=== PATIENT | male | born 1935 | race Caucasian/White ===

== ENCOUNTER 2024-06-01 14:19 | Emergency (ER) | payer OTHER, MEDICARE ==
--- NOTE | 2024-06-01 17:01 | RAD REPORT ---
EXAMINATION: ONE VIEW CHEST XR CLINICAL INDICATION: Male, 89 years old.,weakness TECHNIQUE: Frontal chest projection is submitted. Examination is limited by patient positioning and t echnique. COMPARISON: 12/03/2014 FINDINGS: The lungs are well inflated and clear. Mild hyperlucency, suggesting COPD. No pneumothorax or sizable effusion. The heart is normal in size. IMPRESSION: No acute intrathoracic abnormalities.
[2024-06-01 18:38] LABS: Absolute Lymphocytes (CBC) 2.3 K/uL (0.7-4.9); Absolute Monocytes 0.5 K/uL (0.1-1.3); Absolute Neutrophil 3.6 K/uL (1.8-8.0); Basophils % 0.4 % (0-1.3); Eosinophils % 0.8 % (0-4.4); Hematocrit 29.1 % (39.6-49.0); Hemoglobin 9.6 g/dL (13.6-17.9); Lymphocytes % 35.6 % (15.3-44.8); MCH 28.7 pg (27.0-35.0); MCHC 32.9 g/dL (32.0-36.0); MCV 87.2 fL (80-100); MPV 7.8 fL (7.6-11.3); Monocytes % 7.5 % (3.3-12.3); Neutrophils % 55.7 % (41.7-73.7); Platelets 283 thou/uL (152-406); RBC Red Blood Cell Count 3.34 M/uL (4.33-5.43); Red Cell Distribution Width 14.9 % (12.1-15.2)
[2024-06-01 18:42] LABS: PT Prothrombin Time 14.6 SECONDS (9.4-12.5); Protime INR 1.31
[2024-06-01 18:48] LABS: ALT/SGPT 16 U/L (16-61); AST/SGOT 14 U/L (15-37); Albumin 3.7 g/dL (3.4-5.0); Albumin/Globulin Ratio 1.2 (1.1-1.8); Alkaline Phosphatase 108 U/L (45-117); BUN Blood Urea Nitrogen 28 mg/dL (7-18); Bicarbonate 26 mEq/L (21-32); Bilirubin Total 0.3 mg/dL (0.2-1.0); Globulin 3.2 g/dL (2.3-3.5); Glomerular Filtration Rate 48 ml/min (=/>90); Glucose Level 162 mg/dL (74-106); Magnesium 2.2 mg/dL (1.6-2.4); Protein, Total 6.9 g/dL (6.4-8.2); Sodium Level 140 mEq/L (136-145); Troponin High Sensitivity 5.6 pg/mL (<58.9)
[2024-06-01 18:49] LABS: Bilirubin Direct < 0.2 mg/dL (0-0.2); Bilirubin Indirect, Calculated 0.1 mg/dL (0.2-0.8)
[2024-06-01] MEDS ORDERED: NA CHLORIDE 0.9% 250 ML ONE (19:54)
[2024-06-01] MEDS ORDERED: PANTOPRAZOLE 40 MG INJ ONE (19:54)
--- NOTE | 2024-06-01 21:42 | RAD REPORT ---
EXAMINATION: Abdomen Pelvis W/Wo Contrast CLINICAL INDICATION: Male, 89 years old. [facility] MAIN dark stools Bed Name: [id number] TECHNIQUE: CT abdomen and pelvis was performed, before and after the administration of IV contrast, a s per department protocol. Axial, sagittal and coronal reconstructions were obtained. One or more of the following dose reduction techniques were used: Automated exposure control, adjustment of the m A and/or kV according to patient size, and/or iterative reconstruction. Unless otherwise specified, incidental findings do not require dedicated imaging follow-up. COMPARISON: No prior exam. FINDINGS: LOWER CHEST: The visualized lung bases are clear. LIVER: Normal in size and contour. No focal lesion. BILIARY SYSTEM: Cholelithiasis. No pericholecystic fluid or fat stranding. PANCREAS: No mass, ductal dilation, or pratik-pancreatic fluid. SPLEEN: Normal size. No focal lesion. ADRENALS: Normal; no mass. KIDNEYS AND URETERS: Normal size and contour. No hydronephrosis or hydroureter. No enhancing mass or filling defect within the renal pelvises. No suspicious filling defects within the ureters. URINARY BLADDER: Normal in appearance. No suspicious mass or stone. GASTROINTESTINAL TRACT: No evidence of bowel obstruction, free air, significant free fluid or abscess . Sigmoid diverticulosis without evidence of acute diverticulitis APPENDIX: No inflammatory changes in region of appendix. LYMPH NODES: No lymphadenopathy. REPRODUCTIVE ORGANS: No pathologic process. MUSCULOSKELETAL: No acute or suspicious osseous abnormality. 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 ADDITIONAL FINDINGS: Right inguinal hernia containing fat. IMPRESSION: Sigmoid diverticulosis without evidence of acute diverticulitis. Gallstones. Other findings as above.
--- NOTE | 2024-06-01 22:27 | ER ---
Nurse's Notes [facility] Name: Mode Schwartz Age: 89 yrs Sex: Male : 1935 Arrival Date: 06/01/2024 Time: 14:19 Bed 3 Private MD: Diagnosis: Anemia, unspecified;GI Bleed/ Gastrointestinal hemorrhage, unspecified Presentation: 06/01 14:33 Chief complaint: Patient states: DIARRHEA, BLACK STOOLS X 2 DAYS. LOWER BACK PAIN AND db COMPLAINING OF WEAKNESS. AMBULATORY WITH ROLLING WALKER IN TRIAGE. Coronavirus screen: Client denies travel out of the [place] in the last 14 days. Coronavirus screen: At this time, the client does not indicate any symptoms associated with coronavirus-19. Ebola Screen: Patient negative for fever greater than or equal to 101.5 degrees Fahrenheit, and additional compatible Ebola Virus Disease symptoms Patient denies exposure to infectious person. Patient denies travel to an Ebola-affected area in the 21 days before illness onset. No symptoms or risks identified at this time. Initial Sepsis Screen: Does the patient meet any 2 criteria? No. Patient's initial sepsis screen is negative. Does the patient have a suspected source of infection? No. Patient's initial sepsis screen is negative. Risk Assessment: Do you want to hurt yourself or someone else? Patient reports no desire to harm self or others. Onset of symptoms was June 01, 2024. 14:33 Method Of Arrival: Ambulatory db 14:33 Acuity: KIANA 3 db Triage Assessment: 14:35 General: Appears in no apparent distress. comfortable, Behavior is calm, cooperative. db Pain: Complains of pain in back. Neuro: Level of Consciousness is awake, alert, obeys commands, Oriented to person, place, time, situation. Respiratory: Airway is patent Respiratory effort is even, unlabored, Respiratory pattern is regular, symmetrical. GI: Abdomen is non-distended, Stools are reported to be diarrhea. Historical: - Allergies: 14:35 No Known Allergies; db - Home Meds: 14:35 Eliquis oral [Active]; db - PMHx: 14:35 BLOOD CLOTS; Hypertensive disorder; db - PSHx: 14:35 CARDIAC STENT; Stented artery; db - Immunization history:: Adult Immunizations unknown. - Infectious Disease History:: Denies. - Social history:: Smoking status: Patient denies any tobacco usage or history of. Screenin:09 [facility] ED Fall Risk Assessment (Adult) History of falling in the last 3 months, dd2 including since admission No falls in past 3 months (0 pts) Confusion or Disorientation Yes (5 pts) Intoxicated or Sedated No (0 pts) Impaired Gait No (0 pts) Mobility Assist Device Used Yes (1 pt) Altered Elimination No (0 pt) Score/Fall Risk Level 3 or more points = High Risk Oriented to surroundings, Maintained a safe environment, Educated pt \T\ family on fall prevention, incl call for assistance when getting out of bed, Assessed \T\ reinforced patient's understanding of fall precautions, Used ambulatory aids as needed (educated on \T\ assisted with), Remained with patient while ambulating, Utilized family, sitter, or virtual source water protection specialist as indicated. Abuse screen: Denies threats or abuse. Nutritional screening: No deficits noted. Tuberculosis screening: No symptoms or risk factors identified. Assessment: 14:35 General: Appears in no apparent distress. comfortable, Behavior is calm, cooperative. rs5 Pain: Complains of pain in back Pain currently is 2 out of 10 on a pain scale. Quality of pain is described as aching, Is continuous. Neuro: Level of Consciousness is awake, alert, obeys commands, Oriented to person, place, time, situation. Cardiovascular: Patient's skin is warm and dry. Respiratory: Airway is patent Respiratory effort is even, unlabored, Respiratory pattern is regular, symmetrical. 14:35 GI: Abdomen is round non-distended, Abd is soft and non tender X 4 quads. GI: Reports rs5 diarrhea, dark tarry stool. : No signs and/or symptoms were reported regarding the genitourinary system. EENT: No signs and/or symptoms were reported regarding the EENT system. Derm: Skin is intact, Skin is pink, warm \T\ dry. Musculoskeletal: Range of motion: intact in all extremities. 15:40 Reassessment: Patient and/or family updated on plan of care and expected duration. Pain rs5 level reassessed. Patient is alert, oriented x 3, equal unlabored respirations, skin warm/dry/pink. 17:01 Reassessment: Patient and/or family updated on plan of care and expected duration. Pain rs5 level reassessed. Patient is alert, oriented x 3, equal unlabored respirations, skin warm/dry/pink. 18:10 Reassessment: Patient and/or family updated on plan of care and expected duration. Pain rs5 level reassessed. Patient is alert, oriented x 3, equal unlabored respirations, skin warm/dry/pink. 20:09 Reassessment: Patient is alert, oriented x 3, equal unlabored respirations, skin dd2 warm/dry/pink. Pt AAOX3 WITH FORGETFULNESS. 20G RAC, PATENT FLUSHES WELL. VSS. RESPIRATIONS EVEN AND UNLABORED. STOMACH NON-TENDER, NON-DISTENDED. MOVES ALL EXTREMITIES. DENIES SOB, CHEST PAIN OR PAIN Patient denies pain at this time. 20:15 Reassessment: Patient appears in no apparent distress at this time. No changes from vc1 previously documented assessment. Patient and/or family updated on plan of care and expected duration. Pain level reassessed. Patient is alert, oriented x 3, equal unlabored respirations, skin warm/dry/pink. 22:00 Reassessment: Patient appears in no apparent distress at this time. No changes from vc1 previously documented assessment. Patient and/or family updated on plan of care and expected duration. Pain level reassessed. Patient is alert, oriented x 3, equal unlabored respirations, skin warm/dry/pink. 23:00 General: pt discharge pending; waiting on radiology disk. vc1 Vital Signs: 14:33 BP 135 / 108; Pulse 78; Resp 18; Temp 98.7; Pulse Ox 98% ; Weight 83.01 kg; Height 5 db ft. 10 in. ; 20:09 BP 152 / 63; Pulse 71; Resp 17; Pulse Ox 99% ; dd2 23:19 BP 148 / 67; Pulse 76; Resp 17; Pulse Ox 98% ; Pain 0/10; dd2 14:33 Body Mass Index 26.26 (83.01 kg, 177.8 cm) db 23:19 Pain Scale: Adult dd2 ED Course: 14:25 Patient arrived in ED. sj2 14:26 Moise Quintero PA is PHCP. cp 14:26 Moise Shaw MD is Attending Physician. cp 14:35 Triage completed. db 14:35 Arm band placed on left wrist. Patient placed in waiting room. db 15:32 XRAY Chest (1 view) In Process Unspecified. EDMS 17:45 Radiology exam delayed due to IV insertion attempt and/or patient not having sj appropriate IV at this time. 17:46 Radiology exam delayed due to lab results not completed at this time. (BUN/Creatinine). sj 18:23 Sylvester Lino, RN is Primary Nurse. rs5 18:41 Radiology exam delayed due to lab results not completed at this time. (BUN/Creatinine). 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 EKG done, by ED staff, reviewed by Moise Quintero dd2 PA. 20:08 IV is patent, is intact, with fluids infusing freely, with good blood return, 20g RAC dd2 placed by day shift. 20:09 Patient has correct armband on for positive identification. Placed in gown. Bed in low dd2 position. Call light in reach. Side rails up X2. Provided Education on: call light, medications, transfer information. Client placed on continuous cardiac and pulse oximetry monitoring. NIBP monitoring applied. site monitor on. Door closed. Noise minimized. Warm blanket given. Pillow given. Verbal reassurance given. 20:09 Patient maintains SpO2 saturation greater than 95% on room air. dd2 20:56 CT Abd/Pelvis- W/WO Contrast In Process Unspecified. EDMS 22:26 Jaswant Caraballo MD is Referral Physician. cp 23:39 IV discontinued, intact, bleeding controlled, No redness/swelling at site. Pressure vc1 dressing applied. Administered Medications: 20:07 Drug: Pantoprazole IVP 40 mg IVP once Route: IVP; Site: right antecubital; dd2 20:21 Follow up: Response: No adverse reaction dd2 20:07 Drug: Pantoprazole IVP 40 mg IVP once Route: IVP; Site: right antecubital; dd2 20:21 Follow up: Response: No adverse reaction dd2 20:07 Drug: Pantoprazole IV 8 mg/hr IV at 25 ml/hr continuous; (Standard dilution is 80 mg in dd2 250 mL NS) Route: IV; Rate: 25 ml/hr; Site: right antecubital; 20:21 Follow up: Response: No adverse reaction dd2 23:39 Follow up: IV Status: Order to discontinue infusion; IV Intake: 75ml vc1 Medication: 20:09 VIS not applicable for this client. dd2 Intake: 23:39 IV: 75ml; Total: 75ml. vc1 Outcome: 22:26 Discharge ordered by MD. cp 23:38 Discharged to home ambulatory, with significant other, vc1 23:38 Condition: improved 23:38 Discharge instructions given to patient, Instructed on discharge instructions, follow up and referral plans. Demonstrated understanding of instructions, follow-up care, 23:39 Patient left the ED. vc1 Signatures: Dispatcher [employer] EDConcetta Lane Corey, PA PA Adriano Ratliff Vanessa, RN RN vc1 Mary Blanco RN RN db Sylvester Lino RN RN rs5 ROXANN WHEATLEY RN RN dd2 Mari [facility]
--- NOTE | 2024-06-01 22:27 | EDPHYS ---
Physician Documentation [facility] Name: Mode Schwartz Age: 89 yrs Sex: Male : 1935 Arrival Date: 06/01/2024 Time: 14:19 Bed 3 Private MD: ED Physician Moise Shaw HPI: 06/01 14:45 This 89 yrs old Unknown Male presents to ER via Ambulatory with complaints of Bloody cp Stools, Low Back Pain. 14:45 The patient presents to the emergency department with rectal bleeding, dark red blood cp with bowel movement with multiple such episodes. Onset: The symptoms/episode began/occurred 2 day(s) ago. Abdominal pain: located in the abdomen diffusely. Associated signs and symptoms: Pertinent positives: low back pain, Pertinent negatives: chest pain, constipation, fever, shortness of breath, syncope. 14:45 Severity of symptoms: in the emergency department the symptoms are unchanged despite cp home interventions. Historical: - Allergies: 14:35 No Known Allergies; db - Home Meds: 14:35 Eliquis oral [Active]; db - PMHx: 14:35 BLOOD CLOTS; Hypertensive disorder; db - PSHx: 14:35 CARDIAC STENT; Stented artery; db - Immunization history:: Adult Immunizations unknown. - Infectious Disease History:: Denies. - Social history:: Smoking status: Patient denies any tobacco usage or history of. ROS: 14:50 Constitutional: Negative for body aches, chills, fever, poor PO intake, cp 14:50 Eyes: Negative for injury, pain, redness, and discharge, cp 14:50 ENT: Negative for drainage from ear(s), ear pain, sore throat, difficulty swallowing, difficulty handling secretions, 14:50 Cardiovascular: Negative for chest pain, edema, palpitations, 14:50 Respiratory: Negative for cough, shortness of breath, wheezing, 14:50 Abdomen/GI: Positive for abdominal pain, diarrhea, black/tarry stool, Negative for vomiting, constipation, 14:50 Neuro: Negative for altered mental status, dizziness, headache, syncope, weakness, 14:50 All other systems are negative, Exam: 14:55 Constitutional: The patient appears in no acute distress, alert, awake, cp non-diaphoretic, non-toxic, well developed, well nourished, 14:55 Head/Face: Normocephalic, atraumatic. cp 14:55 Eyes: Periorbital structures: appear normal, Conjunctiva: normal, no exudate, no injection, Sclera: no appreciated abnormality, Lids and lashes: appear normal, bilaterally, 14:55 ENT: External ear(s): are unremarkable, Nose: is normal, Mouth: Lips: moist, Oral mucosa: pink and intact, moist, Posterior pharynx: Airway: no evidence of obstruction, patent, 14:55 Neck: ROM/movement: is normal, is supple, without pain, no range of motions limitations, 14:55 Chest/axilla: Inspection: normal, 14:55 Cardiovascular: Rate: normal, Rhythm: regular, Edema: is not appreciated, JVD: is not appreciated, 14:55 Respiratory: the patient does not display signs of respiratory distress, Respirations: normal, no use of accessory muscles, no retractions, labored breathing, is not present, Breath sounds: are clear throughout, no decreased breath sounds, no stridor, no wheezing, 14:55 Abdomen/GI: Inspection: abdomen appears normal, Palpation: soft, in all quadrants, mild abdominal tenderness, in all quadrants, 14:55 Back: ROM is normal, CVA tenderness, is absent, 14:55 Neuro: Orientation: no acute changes, per family, Mentation: no acute changes, per family, Motor: moves all fours, no focal deficits, Gait: is steady, 19:30 ECG was reviewed by the Attending Physician. Vital Signs: 14:33 BP 135 / 108; Pulse 78; Resp 18; Temp 98.7; Pulse Ox 98% ; Weight 83.01 kg; Height 5 db ft. 10 in. ; 20:09 BP 152 / 63; Pulse 71; Resp 17; Pulse Ox 99% ; dd2 23:19 BP 148 / 67; Pulse 76; Resp 17; Pulse Ox 98% ; Pain 0/10; dd2 14:33 Body Mass Index 26.26 (83.01 kg, 177.8 cm) db 23:19 Pain Scale: Adult dd2 MDM: 14:35 Medical Screening Exam initiated cp 22:25 Data reviewed: vital signs, nurses notes, lab test result(s), EKG, radiologic studies, cp CT scan, plain films. 22:25 I considered the following discharge prescriptions or medication management in the cp emergency department Medications were administered in the Emergency Department. See MAR. Care significantly affected by the following chronic conditions: Hypertension, takes Eliquis. ED course: VSS. Discussed results of today's testing and concern for upper GI bleed, need for transfer for GI services. Patient and refuse transfer at this time and can return to ED any time for reevaluation. 06/01 14:40 Order name: Basic Metabolic Panel; Complete Time: 19:06 06/01 19:07 Interpretation: Normal except: CL 108; GLUC 162; BUN 28; CRE 1.42; GFR 48. 06/01 14:40 Order name: CBC with Diff; Complete Time: 19:06 06/01 19:14 Interpretation: Normal except: RBC 3.34; HGB 9.6; HCT 29.1. 06/01 14:40 Order name: LFT's; Complete Time: 19:06 06/01 14:40 Order name: Magnesium; Complete Time: 19:06 06/01 14:40 Order name: PT-INR; Complete Time: 19:06 06/01 14:40 Order name: Troponin HS; Complete Time: 19:06 06/01 14:40 Order name: Ptt, Activated; Complete Time: 19:06 06/01 14:40 Order name: XRAY Chest (1 view); Complete Time: 19:06 06/01 17:42 Order name: CT Abd/Pelvis- W/WO Contrast; Complete Time: 21:59 06/01 14:40 Order name: Cardiac monitoring; Complete Time: 19:15 06/01 14:40 Order name: EKG - Nurse/Tech; Complete Time: 19:29 06/01 14:40 Order name: IV Saline Lock; Complete Time: 20:18 cp 06/01 14:40 Order name: Labs collected and sent; Complete Time: 20:18 06/01 14:40 Order name: O2 Per Protocol; Complete Time: 19:15 06/01 14:40 Order name: O2 Sat Monitoring; Complete Time: 19:15 cp EC:30 Rate is 74 beats/min. Rhythm is regular. UT interval is normal. QRS interval is cp prolonged at 132 msec. QT interval is normal. T waves are Inverted in lead aVR. Interpreted by me. Reviewed by me. Administered Medications: 20:07 Drug: Pantoprazole IVP 40 mg IVP once Route: IVP; Site: right antecubital; dd2 20:21 Follow up: Response: No adverse reaction dd2 20:07 Drug: Pantoprazole IVP 40 mg IVP once Route: IVP; Site: right antecubital; dd2 20:21 Follow up: Response: No adverse reaction dd2 20:07 Drug: Pantoprazole IV 8 mg/hr IV at 25 ml/hr continuous; (Standard dilution is 80 mg in dd2 250 mL NS) Route: IV; Rate: 25 ml/hr; Site: right antecubital; 20:21 Follow up: Response: No adverse reaction dd2 23:39 Follow up: IV Status: Order to discontinue infusion; IV Intake: 75ml vc1 Disposition Summary: 06/01/24 22:26 Discharge Ordered Notes: Location: Home cp Problem: new cp Symptoms: are unchanged cp Condition: Stable cp Diagnosis - Anemia, unspecified cp - GI Bleed/ Gastrointestinal hemorrhage, unspecified cp Followup: cp - With: Jaswant Caraballo MD - When: 1 - 2 days - Reason: Recheck today's complaints Discharge Instructions: - Discharge Summary Sheet cp - Anemia cp - Gastrointestinal Bleeding cp Forms: - Medication Reconciliation Form cp - Antibiotic Education cp - Prescription Opioid Use cp - Patient Portal Instructions cp - Leadership Thank You Letter cp Prescriptions: - Protonix 40 mg Oral Tablet - take 1 tablet ORAL route once daily; 30 tablet; Refills: 0, Product Selection cp Permitted Signatures: Dispatcher [employer] EDMS Moise Quintero PA PA cp Mary Blanco RN RN db ROXANN WHEATLEY RN RN dd2 Dahlia Daugherty RN vc1 Corrections: (The following items were deleted from the chart) 14:41 14:41 Chest Single View+RAD.RAD.BRZ ordered. EDMS EDMS 17:42 17:42 Abdomen Pelvis W/Wo Con+CT.RAD.BRZ ordered. EDMS EDMS
[2024-06-02 10:12] VITALS: TEMP 98.7
[2024-06-02 10:35] VITALS: BP 148/67; O2SAT 98
--- NOTE | 2024-06-02 14:12 | EKG ---
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
== END 2024-06-01 23:39 | disposition home or self-care (01) ==
LOC: ER 14:19
DX: D64.9 Anemia, unspecified (principal); I10 Essential (primary) hypertension; Z86.718 Personal history of other venous thrombosis and embolism; Z79.01 Long term (current) use of anticoagulants; Z95.818 Presence of other cardiac implants and grafts
CPT/HCPCS: 96365; 93005; 85025; 80048; 36415; 83735; 85610; 80076; 85730; 84484; 74178; 71045; 99285; 96366; Q9967; J2470; J7050

== ENCOUNTER 2024-10-24 18:58 | Inpatient (IN) | payer OTHER, MEDICARE ==
--- NOTE | 2024-10-24 20:27 | RAD REPORT ---
EXAMINATION: ONE VIEW CHEST XR CLINICAL INDICATION: weakness TECHNIQUE: Frontal chest projection is submitted. Examination is limited by patient positioning and t echnique. COMPARISON: 06/01/2024 FINDINGS: The lungs are well inflated and clear. The heart is upper limit of normal in size. No displaced fract ures identified. IMPRESSION: No acute intrathoracic abnormalities.
[2024-10-24] MEDS ORDERED: NA CHLORIDE 0.9% 1,000 ML ONE (20:43)
[2024-10-24 20:59] LABS: Absolute Basophils 0.1 K/uL (0-0.5); Absolute Eosinophils 0.3 K/uL (0-0.5); Absolute Lymphocytes (CBC) 2.1 K/uL (0.7-4.9); Absolute Monocytes 0.8 K/uL (0.1-1.3); Absolute Neutrophil 4.1 K/uL (1.8-8.0); Basophils % 0.7 % (0-1.3); Eosinophils % 3.6 % (0-4.4); Hematocrit 42.5 % (39.6-49.0); Hemoglobin 14.8 g/dL (13.6-17.9); Lymphocytes % 28.2 % (15.3-44.8); MCH 30.3 pg (27.0-35.0); MCHC 34.7 g/dL (32.0-36.0); MCV 87.2 fL (80-100); MPV 8.4 fL (7.6-11.3); Monocytes % 11.3 % (3.3-12.3); Neutrophils % 56.2 % (41.7-73.7); Platelets 226 thou/uL (152-406); RBC Red Blood Cell Count 4.87 M/uL (4.33-5.43); Red Cell Distribution Width 15.1 % (12.1-15.2)
[2024-10-24 21:07] LABS: PT Prothrombin Time 11.4 SECONDS (10-13.0)
[2024-10-24 21:22] LABS: Specific Gravity 1.027 (1.005-1.030); Sqamous Epithelial None Seen /HPF (None Seen); Urine Bacteria None Seen /HPF (<20); Urine Bilirubin NEGATIVE (Negative); Urine Blood Negative (Negative); Urine Clarity Clear (Clear); Urine Color Yellow (Yellow); Urine Culture Reflex Order NOT NEEDED; Urine Glucose NEGATIVE (Negative); Urine Ketones NEGATIVE (Negative); Urine Micro Reflex YN NO BILL MICROSCOPIC; Urine Mucus Slight /HPF (None Seen); Urine Nitrite NEGATIVE (Negative); Urine Protein TRACE (Negative); Urine RBC <5 /HPF (None Seen); Urine Urobilinogen Normal (Normal); Urine WBC <5 /HPF (<5); Urine pH 5.5 (5.0-7.0)
[2024-10-24 21:40] LABS: ALT/SGPT 19 U/L (16-61); AST/SGOT 20 U/L (15-37); Albumin 3.5 g/dL (3.4-5.0); Alkaline Phosphatase 151 U/L (45-117); Anion Gap 10.1 mEq/L (5.0-15.0); BUN Blood Urea Nitrogen 24 mg/dL (7-18); Bicarbonate 29 mEq/L (21-32); Bilirubin Direct < 0.2 mg/dL (0-0.2); Bilirubin Indirect, Calculated 0.3 mg/dL (0.2-0.8); Bilirubin Total 0.5 mg/dL (0.2-1.0); Globulin 3.6 g/dL (2.3-3.5); Glomerular Filtration Rate 50 ml/min (=/>90); Glucose Level 99 mg/dL (74-106); Magnesium 2.1 mg/dL (1.6-2.4); NT PRO-BNP 104 pg/mL (<450); Potassium 4.1 mEq/L (3.5-5.1); Protein, Total 7.1 g/dL (6.4-8.2); Sodium Level 142 mEq/L (136-145); Troponin High Sensitivity 3.3 pg/mL (<58.9)
--- NOTE | 2024-10-24 21:46 | RAD REPORT ---
EXAM: CT CHEST, ABDOMEN AND PELVIS WITHOUT CONTRAST CLINICAL INDICATION: fall at home TECHNIQUE: CT chest, abdomen and pelvis was performed without contrast, as per department protocol. A xial, sagittal and coronal reconstructions were obtained. One or more of the following dose reduction techniques were used: Automated exposure control, adjustment of the mA and/or kV according to patient size, and/or iterative reconstruction. Unless otherwise specified, incidental findings do not require dedicated imaging follow-up. Examination is limited by the lack of intravenous contrast material. COMPARISON: No prior exam. FINDINGS: LUNGS: No evidence of airspace or interstitial process. No nodules. PLEURA: No pleural effusion. No pneumothorax. MEDIASTINUM AND LYMPH NODES: No mediastinal mass or fluid collection. Normal size mediastinal, hilar, and axillary lymph nodes. OSSEOUS STRUCTURES AND CHEST WALL: Mild lumbar degenerative changes. Diffuse osteopenia is seen. LIVER: Normal in size and contour. No focal lesion or biliary dilatation. Cholelithiasis. PANCREAS: No mass, ductal dilation, or pratik-pancreatic fluid. SPLEEN: Normal size. No focal lesion. ADRENALS: Normal; no mass. KIDNEYS: Normal size and contour. No hydronephrosis. URINARY BLADDER: Normal contour. GASTROINTESTINAL TRACT: No bowel obstruction, free air, significant free fluid or abscess. Prominen t diverticulosis coli of the sigmoid colon is seen. No diverticulitis evident. APPENDIX: Appendix not visualized, but no inflammatory changes in region of appendix. LYMPH NODES: No lymphadenopathy. MUSCULOSKELETAL: Diffuse osteopenia seen. No acute fractures evident. OTHER: IMPRESSION: No trauma-related abnormality is discerned. Prominent diverticulosis coli without diverticulitis. Cholelithiasis.
--- NOTE | 2024-10-24 21:49 | RAD REPORT ---
EXAM: CT brain without contrast HISTORY: fall at home COMPARISON: None TECHNIQUE: Multiple contiguous axial images were obtained and a CT of the brain without contrast. Sag ittal and coronal reformats were performed. One or more of the following dose reduction techniques were used: Automated exposure control, adjust ment of the mA and/or kV according to patient size, and/or iterative reconstruction. FINDINGS: No evidence of hydrocephalus, intracranial hemorrhage, or extra-axial fluid collection. Advanced brain atrophy with advanced periventricular and deep white matter chronic microvascular isc hemic changes present. No evidence of midline shift or areas of brain edema. Left vertebral atherosclerosis. The calvarium is intact. The visualized paranasal sinuses and mastoid air cells are essentially clear . IMPRESSION: No evidence of acute intracranial abnormality. EXAM: CT of the cervical spine without contrast HISTORY: Neck pain, injury fall at home TECHNIQUE: Multiple contiguous axial images were obtained in a CT of the cervical spine without contr ast. Sagittal and coronal reformats were performed. FINDINGS: The vertebral bodies demonstrate normal height and alignment. No evidence of acute fracture or subluxation.. No degenerative changes are present. No prevertebral soft tissue swelling is seen. The posterior facets are well aligned. Normal alignment of the skull base with the cervical spine is seen. The lung apices are unremarkable. IMPRESSION: No evidence of acute osseous abnormality of the cervical spine.
[2024-10-24] MEDS ORDERED: SMZ./TMP. 800/160 MG TABLET ONE (22:51)
[2024-10-24] MEDS ORDERED: TDAP (DIPHTH,PERTUSS(ACELL),TET VAC) 0.5 ML VIAL IMVAC ONE (22:51)
--- NOTE | 2024-10-24 22:51 | EDPHYS ---
Physician Documentation [facility] Name: Mode Schwartz Age: 89 yrs Sex: Male : 1935 Arrival Date: 10/24/2024 Time: 18:58 Bed 27 Private MD: ED Physician Dave Hogan HPI: 10/24 20:03 This 89 yrs old Male presents to ER via Wheelchair with complaints of Fall sp4 Injury. 10/25 20:23 89-year-old male presents with generalized weakness and multiple falls at home also sp4 associated skin tear to left upper forearm. 20:23 Patient's states he has been unwell for the past 3 days had generalized weakness sp4 and cannot seem to walk without falling.. Historical: - Allergies: 10/24 19:16 No Known Allergies; vc1 - PMHx: 19:16 blood clots; Hypertensive disorder; vc1 - PSHx: 19:16 cardiac stent; X3; Stented artery; vc1 - Immunization history:: Adult Immunizations up to date. - Infectious Disease History:: Denies. - Immunization history: Last tetanus immunization: - up to date. - Social history:: Smoking status: Patient/guardian denies using tobacco, but has a distant history of tobacco abuse. - Family history:: not pertinent. ROS: 10/25 20:23 Constitutional: Negative for fever, chills, and weight loss, positive for generalized sp4 weakness positive multiple falls positive skin tear left forearm All other systems are negative, Exam: 20:23 Constitutional: Frail elderly male, mild to moderate dementia, generalized weakness, sp4 no focal deficits, ill-appearing but nontoxic. Head/Face: Normocephalic, atraumatic. Eyes: Pupils equal round and reactive to light, extra-ocular motions intact. Lids and lashes normal. Conjunctiva and sclera are not injected. Cornea within normal limits. Periorbital areas with no swelling, redness, or edema. ENT: Nares patent. No nasal discharge, no septal abnormalities noted. Tympanic membranes are normal and external auditory canals are clear. Oropharynx with no redness, swelling, or masses, exudates, or evidence of obstruction, uvula midline. Mucous membranes moist. Neck: Trachea midline, no thyromegaly or masses palpated, and no cervical lymphadenopathy. Supple, full range of motion without nuchal rigidity, or vertebral point tenderness. Chest/axilla: Normal chest wall appearance and motion. Nontender with no deformity. No lesions are appreciated. Cardiovascular: Regular rate and rhythm with a normal S1 and S2. No gallops, murmurs, or rubs. Normal PMI, no JVD. No pulse deficits. Respiratory: Lungs have equal breath sounds bilaterally, clear to auscultation and percussion. No rales, rhonchi or wheezes noted. No increased work of breathing, no retractions or nasal flaring. Abdomen/GI: Soft, with normal bowel sounds. No distension or tympany. No guarding or rebound. No evidence of tenderness throughout. Back: No spinal tenderness. No costovertebral tenderness. Skin: Warm, dry with normal turgor. Normal color with no rashes, no lesions, and no evidence of cellulitis. MS/ Extremity: Pulses equal, no cyanosis. Neurovascular intact. Full, normal range of motion. Neuro: Awake and alert, GCS 15, oriented to person, Cranial nerves II-XII grossly intact. Motor strength 5/5 in all extremities. Sensory grossly intact. Alert and oriented x 1 to self and others Vital Signs: 10/24 19:13 Weight 83.01 kg; Height 5 ft. 10 in. ; Pain 3/10; vc1 19:17 Pulse 78; Resp 16; Temp 98.2; Pulse Ox 100% ; vc1 21:10 BP 158 / 79; Pulse 70; Resp 18; Pulse Ox 96% ; cp4 22:24 BP 151 / 78; Pulse 67; Resp 18; Pulse Ox 99% ; cp4 19:13 Body Mass Index 26.26 (83.01 kg, 177.8 cm) vc1 19:13 Pain Scale: Adult vc1 NIH Stroke Scale Scores: 10/25 20:23 NIHSS Score: 0 sp4 Shayan Coma Score: 10/24 19:45 Eye Response: spontaneous(4). Motor Response: obeys commands(6). Verbal Response: cp4 oriented(5). Total: 15. 10/25 20:23 Eye Response: spontaneous(4). Motor Response: obeys commands(6). Verbal Response: sp4 oriented(5). Total: 15. Trauma Score (Adult): 10/24 19:45 Eye Response: spontaneous(1); Verbal Response: oriented(1); Motor Response: obeys cp4 commands(2); Systolic BP: > 89 mm Hg(4); Respiratory Rate: 10 to 29 per min(4); Shayan Score: 15; Trauma Score: 12 MDM: 20:17 Medical Screening Exam initiated sp4 10/25 20:25 Differential diagnosis: abrasion, closed head injury, contusion, fracture, laceration, sp4 multiple trauma, sprain, strain. Data reviewed: vital signs, nurses notes, EMS record, old medical records, lab test result(s), EKG, radiologic studies. Consideration of Admission/Observation Patient was admitted/placed on observation. Escalation of care including admission/observation considered. Management of patient was discussed with the following: Hospitalist: Dre Street MD . Labor Relations Analyst: Jose Miguel Palmer ED course: Patient was admitted in stable condition.. 20:27 ED course: EXAMINATION: ONE VIEW CHEST XR CLINICAL INDICATION: weakness TECHNIQUE: sp4 Frontal chest projection is submitted. Examination is limited by patient positioning and technique. COMPARISON: 06/01/2024 FINDINGS: The lungs are well inflated and clear. The heart is upper limit of normal in size. No displaced fractures identified. IMPRESSION: No acute intrathoracic abnormalities.. ED course: EXAM: CT brain without contrast HISTORY: fall at home COMPARISON: None TECHNIQUE: Multiple contiguous axial images were obtained and a CT of the brain without contrast. Sagittal and coronal reformats were performed. One or more of the following dose reduction techniques were used: Automated exposure control, adjustment of the mA and/or kV according to patient size, and/or iterative reconstruction. FINDINGS: No evidence of hydrocephalus, intracranial hemorrhage, or extra-axial fluid collection. Advanced brain atrophy with advanced periventricular and deep white matter chronic microvascular ischemic changes present. No evidence of midline shift or areas of brain edema. Left vertebral atherosclerosis. The calvarium is intact. The visualized paranasal sinuses and mastoid air cells are essentially clear. IMPRESSION: No evidence of acute intracranial abnormality. EXAM: CT of the cervical spine without contrast HISTORY: Neck pain, injury fall at home TECHNIQUE: Multiple contiguous axial images were obtained in a CT of the cervical spine without contrast. Sagittal and coronal reformats were performed. FINDINGS: The vertebral bodies demonstrate normal height and alignment. No evidence of acute fracture or subluxation.. No degenerative changes are present. No prevertebral soft tissue swelling is seen. The posterior facets are well aligned. Normal alignment of the skull base with the cervical spine is seen. The lung apices are unremarkable. IMPRESSION: No evidence of acute osseous abnormality of the cervical spine.. ED course: CT Chest , abdomen , pelvis - IMPRESSION: No trauma-related abnormality is discerned. Prominent diverticulosis coli without diverticulitis. Cholelithiasis. . 10/24 20:14 Order name: Basic Metabolic Panel; Complete Time: 22:39 sp4 10/24 20:14 Order name: CBC with Diff; Complete Time: 22:39 sp4 10/24 20:14 Order name: LFT's; Complete Time: 22:39 sp4 10/24 20:14 Order name: Magnesium; Complete Time: 22:39 sp4 10/24 20:14 Order name: NT PRO-BNP; Complete Time: 22:39 sp4 10/24 20:14 Order name: PT-INR; Complete Time: 22:39 sp4 10/24 20:14 Order name: Troponin HS; Complete Time: 22:39 sp4 10/24 20:15 Order name: Blood Culture Adult (2) sp4 10/24 20:15 Order name: TSH; Complete Time: 22:39 sp4 10/24 20:15 Order name: T4 Free; Complete Time: 22:39 sp4 10/24 20:15 Order name: T3 Free; Complete Time: 22:39 sp4 10/24 20:15 Order name: Urinalysis W/Microscopic; Complete Time: 22:39 sp4 10/24 23:38 Order name: CBC with Automated Diff EDMS 10/24 23:38 Order name: CBC with Automated Diff EDMS 10/24 23:38 Order name: Comprehensive Metabolic Panel EDMS 10/24 23:38 Order name: Comprehensive Metabolic Panel EDMS 10/24 23:38 Order name: Magnesium EDMS 10/24 23:38 Order name: Magnesium EDMS 10/24 20:14 Order name: XRAY Chest (1 view); Complete Time: 22:39 sp4 10/24 20:15 Order name: CT Chest Abdomen Pelvis W/O Contrast; Complete Time: 22:39 sp4 10/24 20:15 Order name: CT Head C Spine; Complete Time: 22:39 4 10/24 23:39 Order name: Physical Therapy Consult EDMS 10/24 20:14 Order name: Cardiac monitoring; Complete Time: 20:14 sp4 10/24 20:14 Order name: EKG - Nurse/Tech; Complete Time: 20:27 sp4 10/24 20:14 Order name: IV Saline Lock; Complete Time: 20:47 sp4 10/24 20:14 Order name: Labs collected and sent; Complete Time: 20:47 4 10/24 20:14 Order name: O2 Per Protocol; Complete Time: 20:14 sp4 10/24 20:14 Order name: O2 Sat Monitoring; Complete Time: 20:14 sp4 10/24 22:48 Order name: Wound Care; Complete Time: 23:51 sp4 Administered Medications: 10/24 20:47 Drug: NS 0.9% IV 1000 ml IV at 125 ml/hr Per protocol; to be given as a bolus over 60 cp4 minutes Route: IV; Rate: 125 ml/hr; Site: right antecubital; 10/25 04:55 Follow up: IV Status: Completed infusion [facility] 10/24 22:59 Drug: Boostrix Tdap IM 0.5 ml IM once; as a single dose Route: IM; Site: right deltoid; [facility] 10/25 04:54 Follow up: Response: No adverse reaction [facility] 10/24 22:59 Drug: Trimethoprim-Sulfamethoxazole PO (160 mg-800 mg (DS) 1 tablet PO once Route: PO; [facility] 10/25 04:54 Follow up: Response: No adverse reaction [facility] Disposition Summary: 10/24/24 22:50 Hospitalization Ordered Notes: Hospitalization Status: Inpatient Admission sp4 Provider: Dre Ontiveros sp4 Condition: Stable sp4 Problem: new sp4 Symptoms: have improved sp4 Bed/Room Type: Standard sp4 Location: Telemetry/MedSurg (Inpatient)(10/25/24 11:06) ty Room Assignment: [facility](10/25/24 11:06) ty Diagnosis - Muscle weakness (generalized) sp4 - Acute onset generalized weakness, multiple falls, left forearm skin tear, left sp4 elbow skin tear, subclinical hypothyroidism, acute renal insufficiency Forms: - Medication Reconciliation Form sp4 - SBAR form sp4 - Leadership Thank You Letter sp4 NIH Stroke Scale - NIH Stroke Score Date: 10/25/2024 Time: 20:23 Total Score = 0 10. Dysarthria (speech clarity - read or repeat words) - 0(Normal) 11. Extinction and Inattention (visual/tactile/auditory/spatial/personal) - 0(No abnormality) 1a. Level of Consciousness (LOC) - 0(Alert) 1b. Level of Consciousness (LOC) (Month \T\ Age) - 0(Both) 1c. LOC Commands (Open \T\ Closes Eyes/Cover Operator) - 0(Both) 2. Best Gaze (Lateral Gaze Paresis) - 0(Normal) 3. Visual Field Loss - 0(No visual loss) 4. Facial Palsy - 0(Normal) 5a. Left Arm: Motor (10-second hold) - 0(No drift) 5b. Right Arm: Motor (10-second hold) - 0(No drift) 6a. Left Leg: Motor (5-second hold - always test supine) - 0(No drift) 6b. Right Leg: Motor (5-second hold - always test supine) - 0(No drift) 7. Limb Ataxia (finger/nose \T\ heel/malloy - test with eyes open) - 0(Absent) 8. Sensory Loss (pinprick arms/legs/face) - 0(Normal) 9. Best Language: Aphasia (description/naming/reading) - 0(No aphasia) Initials: sp4 Addendum: 10/28/2024 19:27 Addendum: EKG at 2024 normal sinus rhythm rate 67, right bundle branch block, sp4 otherwise no ST elevation or depression, no ectopy, no acute ischemic changes, normal intervals. . Signatures: Dispatcher [employer] EDMS Dahlia Daugherty RN RN vc1 Dave Hogan MD MD sp4 Jovita Angulo cp4 Miguel A Sanchez Corrections: (The following items were deleted from the chart) 10/24 20:15 20:15 BASIC METABOLIC PANEL+C.LAB.BRZ ordered. EDMS EDMS 20:15 20:15 CBC+H.LAB.BRZ ordered. EDMS EDMS 20:15 20:15 HEPATIC FUNCTION+C.LAB.BRZ ordered. EDMS EDMS 20:15 20:15 MAGNESIUM+C.LAB.BRZ ordered. EDMS EDMS 20:15 20:15 PROBNP+C.LAB.BRZ ordered. EDMS EDMS 20:15 20:15 PROTIME (+INR)+COAG.LAB.BRZ ordered. EDMS EDMS 20:15 20:15 Troponin High Sensitivity+C.LAB.BRZ ordered. EDMS EDMS 20:15 20:15 Chest Single View+RAD.RAD.BRZ ordered. EDMS EDMS 20:15 20:15 Chest Abdomen Pelvis Wo Con+CT.RAD.BRZ ordered. EDMS EDMS 23:02 22:50 Telemetry/MedSurg (Inpatient) sp4 vc1 23:02 22:50 sp4 vc1 10/25 11:06 10/24 23:02 [facility] ER HOLD vc1 ty 10/25 11:06 10/24 23:02 ERHOLD- vc1 ty
--- NOTE | 2024-10-24 22:51 | ER ---
Nurse's Notes [facility] Name: Mode Schwartz Age: 89 yrs Sex: Male : 1935 Arrival Date: 10/24/2024 Time: 18:58 Bed 27 Private MD: Diagnosis: Muscle weakness (generalized);Acute onset generalized weakness, multiple falls, left forearm skin tear, left elbow skin tear, subclinical hypothyroidism, acute renal insufficiency Presentation: 10/24 19:13 Chief complaint: Spouse and/or significant other states: Fallen 4 times since Wednesday vc1 night, legs are weak. C/O pain to hips and both legs, and lower back. Coronavirus screen: Client denies travel out of the [place] in the last 14 days. At this time, the client does not indicate any symptoms associated with coronavirus-19. Ebola Screen: Patient negative for fever greater than or equal to 101.5 degrees Fahrenheit, and additional compatible Ebola Virus Disease symptoms Patient denies exposure to infectious person. Patient denies travel to an Ebola-affected area in the 21 days before illness onset. No symptoms or risks identified at this time. Initial Sepsis Screen: Does the patient meet any 2 criteria? No. Patient's initial sepsis screen is negative. Does the patient have a suspected source of infection? No. Patient's initial sepsis screen is negative. Risk Assessment: Do you want to hurt yourself or someone else? Patient reports no desire to harm self or others. Onset of symptoms was October 22, 2024. 19:13 Method Of Arrival: Wheelchair vc1 19:13 Acuity: KIANA 3 vc1 19:16 Note No longer takes Eliquis. vc1 23:49 Care prior to arrival: None. Mechanism of Injury: Fall from standing position. Trauma cp4 event details: Injury occurred in the [facility]. Triage Assessment: 19:19 General: Appears in no apparent distress. comfortable, well groomed, well developed, vc1 well nourished, Behavior is cooperative. Pain: Complains of pain in low back area, pelvis, right leg and left leg Pain currently is 3 out of 10 on a pain scale. Neuro: Level of Consciousness is awake, obeys commands, confused, Oriented to person, place. Respiratory: Airway is patent Respiratory effort is even, unlabored, Respiratory pattern is regular, symmetrical. : Parent/caregiver report the patient having urinary frequency about every 2 hours. Derm: Bruising that is yellow, on left hand. Trauma Activation: Not Applicable Physician: ED Physician; Name: ; Notified At: ; Arrived At: Physician: General Surgeon; Name: ; Notified At: ; Arrived At: Physician: Radiology; Name: ; Notified At: ; Arrived At: Physician: Respiratory; Name: ; Notified At: ; Arrived At: Physician: Lab; Name: ; Notified At: ; Arrived At: Historical: - Allergies: 19:16 No Known Allergies; vc1 - PMHx: 19:16 blood clots; Hypertensive disorder; vc1 - PSHx: 19:16 cardiac stent; X3; Stented artery; vc1 - Immunization history:: Adult Immunizations up to date. - Infectious Disease History:: Denies. - Immunization history: Last tetanus immunization: - up to date. - Social history:: Smoking status: Patient/guardian denies using tobacco, but has a distant history of tobacco abuse. - Family history:: not pertinent. Screenin:45 Abuse screen: Denies threats or abuse. Denies injuries from another. Nutritional cp4 screening: No deficits noted. Tuberculosis screening: No symptoms or risk factors identified. 19:47 [facility] ED Fall Risk Assessment (Adult) History of falling in the last 3 months, cp4 including since admission Yes- fall prone (multiple falls) (3 pts) Confusion or Disorientation No (0 pts) Intoxicated or Sedated No (0 pts) Impaired Gait Yes (1 pt) Mobility Assist Device Used No (0 pt) Altered Elimination No (0 pt) Score/Fall Risk Level 3 or more points = High Risk Oriented to surroundings, Maintained a safe environment, Assessed \T\ reinforced patient's understanding of fall precautions, Hourly rounding (assess needs \T\ fall precautionary measures) done, Implemented a Fall Risk Plan of Care, Apply high fall risk patient identification: yellow non skid footwear/ fall signage. Primary Survey: 19:45 NO uncontrolled hemorrhage observed. A: The client is awake and alert. The airway is cp4 patent. Breathing/Chest: Spontaneous respiratory effort, equal unlabored respirations, breath sounds clear bilaterally, regular pattern, symmetrical chest rise and fall. Circulation: No external hemorrhage present. Regular and strong central pulse, skin warm/dry/normal color. Disability Pupils are equal, round, reactive to light and accommodation. Client is alert. Exposure/Environment: A warming method has been applied: A warm blanket has been provided to the patient. Reassessment Alertness and Airway: Awake and alert. The airway is patent. Breathing: Spontaneous respiratory effort, equal unlabored respirations, breath sounds clear bilaterally, regular pattern with symmetrical chest rise and fall. Circulation: No external hemorrhage noted. Regular and strong central pulse, skin warm/dry/normal color. Disability: Pupils Pupils are equal, round, reactive to light and accomodation. Alert. Assessment: 19:45 General: Appears in no apparent distress. comfortable, Behavior is calm, cooperative, cp4 appropriate for age. Pain: Denies pain. Neuro: Level of Consciousness is awake, alert, obeys commands, Oriented to person, place, time, situation. EENT: No signs and/or symptoms were reported regarding the EENT system. Cardiovascular: Patient's skin is warm and dry. Respiratory: Airway is patent Respiratory effort is even, unlabored. GI: No signs and/or symptoms were reported involving the gastrointestinal system. : No signs and/or symptoms were reported regarding the genitourinary system. Derm: No signs and/or symptoms reported regarding the dermatologic system. Musculoskeletal: No signs and/or symptoms reported regarding the musculoskeletal system. Vital Signs: 19:13 Weight 83.01 kg; Height 5 ft. 10 in. ; Pain 3/10; vc1 19:17 Pulse 78; Resp 16; Temp 98.2; Pulse Ox 100% ; vc1 21:10 BP 158 / 79; Pulse 70; Resp 18; Pulse Ox 96% ; cp4 22:24 BP 151 / 78; Pulse 67; Resp 18; Pulse Ox 99% ; cp4 19:13 Body Mass Index 26.26 (83.01 kg, 177.8 cm) vc1 19:13 Pain Scale: Adult vc1 Shayan Coma Score: 19:45 Eye Response: spontaneous(4). Motor Response: obeys commands(6). Verbal Response: cp4 oriented(5). Total: 15. 10/25 20:23 Eye Response: spontaneous(4). Motor Response: obeys commands(6). Verbal Response: sp4 oriented(5). Total: 15. Trauma Score (Adult): 10/24 19:45 Eye Response: spontaneous(1); Verbal Response: oriented(1); Motor Response: obeys cp4 commands(2); Systolic BP: > 89 mm Hg(4); Respiratory Rate: 10 to 29 per min(4); Shayan Score: 15; Trauma Score: 12 NIH Stroke Scale Scores: 10/25 20:23 NIHSS Score: 0 sp4 ED Course: 10/24 19:01 Patient arrived in ED. mr 19:15 Triage completed. vc1 19:16 Arm band placed on left wrist. vc1 19:45 Jovita Angulo is Primary Nurse. cp4 19:45 Bed in low position. Call light in reach. Side rails up X 1. cp4 19:45 Patient maintains SpO2 saturation greater than 95% on room air. cp4 19:47 No provider procedures requiring assistance completed. cp4 20:03 Dave Hogan MD is Attending Physician. sp4 20:26 XRAY Chest (1 view) In Process Unspecified. EDMS 20:40 Initial lab(s) drawn, by in, sent to lab. First set of blood cultures drawn Second set cp4 of blood cultures drawn EKG done, by ED staff, reviewed by Dave Hogan MD. 20:47 Inserted saline lock: 22 gauge in right antecubital area, using aseptic technique. cp4 Blood collected. Flushed with 10 mL NS. 21:09 Urine collected: clean catch specimen, oliver colored. cp4 21:25 CT Chest Abdomen Pelvis W/O Contrast In Process Unspecified. EDMS 21:25 CT Head C Spine In Process Unspecified. EDMS 22:48 Dre Ontiveros MD is Hospitalizing Provider. sp4 23:51 Provided Education on: admission. cp4 23:51 Patient admitted, IV remains in place. cp4 23:51 Thermoregulation: warm blanket given to patient. cp4 Administered Medications: 20:47 Drug: NS 0.9% IV 1000 ml IV at 125 ml/hr Per protocol; to be given as a bolus over 60 cp4 minutes Route: IV; Rate: 125 ml/hr; Site: right antecubital; 10/25 04:55 Follow up: IV Status: Completed infusion cp4 10/24 22:59 Drug: Boostrix Tdap IM 0.5 ml IM once; as a single dose Route: IM; Site: right deltoid; cp4 10/25 04:54 Follow up: Response: No adverse reaction cp4 10/24 22:59 Drug: Trimethoprim-Sulfamethoxazole PO (160 mg-800 mg (DS) 1 tablet PO once Route: PO; cp4 10/25 04:54 Follow up: Response: No adverse reaction cp4 Medication: 10/24 19:47 VIS not applicable for this client. cp4 Intake: 19:45 PO: 0ml; Total: 0ml. cp4 Output: 19:45 Urine: 0ml; Total: 0ml. cp4 Outcome: 22:50 Decision to Hospitalize by Provider. sp4 23:50 Admitted to ER Hold. Please see [facility] for further documentation. cp4 23:50 Condition: stable 23:50 Instructed on the need for admit, 23:50 Patient's length of stay in the Emergency Department was greater than 2 hours. no cp4 bedsPatient's length of stay extended due to 10/25 13:08 Patient left the ED. iw NIH Stroke Scale - NIH Stroke Score Date: 10/25/2024 Time: 20:23 Total Score = 0 10. Dysarthria (speech clarity - read or repeat words) - 0(Normal) 11. Extinction and Inattention (visual/tactile/auditory/spatial/personal) - 0(No abnormality) 1a. Level of Consciousness (LOC) - 0(Alert) 1b. Level of Consciousness (LOC) (Month \T\ Age) - 0(Both) 1c. LOC Commands (Open \T\ Closes Eyes/Paint Booth Operator) - 0(Both) 2. Best Gaze (Lateral Gaze Paresis) - 0(Normal) 3. Visual Field Loss - 0(No visual loss) 4. Facial Palsy - 0(Normal) 5a. Left Arm: Motor (10-second hold) - 0(No drift) 5b. Right Arm: Motor (10-second hold) - 0(No drift) 6a. Left Leg: Motor (5-second hold - always test supine) - 0(No drift) 6b. Right Leg: Motor (5-second hold - always test supine) - 0(No drift) 7. Limb Ataxia (finger/nose \T\ heel/malloy - test with eyes open) - 0(Absent) 8. Sensory Loss (pinprick arms/legs/face) - 0(Normal) 9. Best Language: Aphasia (description/naming/reading) - 0(No aphasia) Initials: sp4 Signatures: Dispatcher [employer] Niki Rodriguez, [facility] Chel Collado RN RN iw Dahlia Daugherty RN RN vc1 Dave Hogan MD MD sp4 Jovita Angulo cp4
--- NOTE | 2024-10-24 23:38 | P.HP ---
Certification for Inpatient Patient admitted to: Inpatient With expected LOS: >2 Midnights Patient will require the following post-hospital care: Long-Term Practitioner: I am a practitioner with admitting privileges, knowledge of patient current condition, hospital course, and medical plan of care. Services: Services provided to patient in accordance with Admission requirements found in Title 42 Section 412.3 of the Code of Federal Regulations Patient History Date of Service: 10/25/24 Reason for admission: Weakness, Fall. History of Present Illness: 89 y o male pt with hx of Dementia and Depression brought by his with c/o frequent falls and weakness. he c/o low back and hip pain and he also had some vague complaints. he did attest to general body aches and his lab works revealed KASHMIR. His imaging did not reveal any fractures or dislocation. he had no significant external bleeding. he was asked to be admitted for possible placement and further work up. Allergies No Known Drug Allergies Allergy (Verified 10/25/24 00:10) Unknown Home Medications: Ascorbic Acid [Vitamin C] 1,000 mg PO DAILY 10/25/24 Cyanocobalamin (Vitamin B-12) [Vitamin B12] 5,000 mcg PO DAILY 10/25/24 Mv-Min/Folic/K1/Lycopen/Lutein [Centrum Adults 50 Plus Minis] 1 tab PO DAILY 10/25/24 Omeprazole 20 mg PO DAILY 10/25/24 Pregabalin [Lyrica] 75 mg PO DAILY 10/25/24 Sertraline [Zoloft] 50 mg PO BID 10/25/24 Review of Systems General: Weakness, Malaise Eyes: Unremarkable ENT: Unremarkable Respiratory: Unremarkable Cardiovascular: Unremarkable Gastrointestinal: Unremarkable Genitourinary: Unremarkable Musculoskeletal: Back Pain, Leg Pain Integumentary: Unremarkable Neurological: Unremarkable Lymphatics: Unremarkable Physical Examination - Physical Exam General: Alert HEENT: Atraumatic, Normocephalic Neck: Supple Respiratory: Normal air movement Cardiovascular: Regular rate/rhythm, Normal S1 S2 Gastrointestinal: Soft and benign Musculoskeletal: No swelling Neurological: Normal strength at 5/5 x4 extr - Studies Laboratory Data (last 24 hrs) 10/24/24 10/24/24 10/24/24 20:38 20:38 20:38 WBC 7.40 Hgb 14.8 Hct 42.5 Plt Count 226 PT 11.4 INR 1.00 Sodium 142 Potassium 4.1 BUN 24 H Creatinine 1.37 H Glucose 99 Magnesium 2.1 Total Bilirubin 0.5 AST 20 ALT 19 Alkaline Phosphatase 151 H Assessment and Plan - Plan Deconditioning/generalized body ache: He had no imaging study evidence of fractures. he did have some discovered abnormality which includes cholelithiasis and diverticulosis without diverticulitis. we will have PT evaluate and also continue as needed tylenol for pain control we will have of fall precautions. He has been pancultured. we will address as per result. Dementia: we will continue outpt meds. Depression: we will continue outpt meds. Prophylaxis: Lovenox and SCDs for DVT. Code status: Full code. disposition: we will have his weakness and deconditioning addressed and we will discharge him to appropriate care setting after proper evaluation. Discharge Plan: Residential - Advance Directives Does patient have a Living Will: No Does patient have a Durable POA for Healthcare: No
[2024-10-24] MEDS: NA CHLORIDE 0.9% 1,000 ML IV SCH (23:45)
[2024-10-25 01:10] VITALS: BMI 26.1
[2024-10-25 04:18] LABS: Absolute Basophils 0.1 K/uL (0-0.5); Absolute Eosinophils 0.3 K/uL (0-0.5); Absolute Lymphocytes (CBC) 2.3 K/uL (0.7-4.9); Absolute Monocytes 0.8 K/uL (0.1-1.3); Absolute Neutrophil 3.6 K/uL (1.8-8.0); Basophils % 0.8 % (0-1.3); Eosinophils % 3.6 % (0-4.4); Hematocrit 38.3 % (39.6-49.0); Lymphocytes % 32.8 % (15.3-44.8); MCV 88.2 fL (80-100); MPV 7.9 fL (7.6-11.3); Monocytes % 11.3 % (3.3-12.3); Neutrophils % 51.5 % (41.7-73.7); Nucleated Red Blood Cells % 0.1 % (0-0); Platelets 199 thou/uL (152-406); RBC Red Blood Cell Count 4.35 M/uL (4.33-5.43); Red Cell Distribution Width 14.9 % (12.1-15.2)
[2024-10-25 04:41] LABS: Albumin 2.9 g/dL (3.4-5.0); Albumin/Globulin Ratio 0.9 (1.1-1.8); Anion Gap 5.6 mEq/L (5.0-15.0); Bilirubin Total 0.5 mg/dL (0.2-1.0); Globulin 3.2 g/dL (2.3-3.5); Potassium 3.6 mEq/L (3.5-5.1); Protein, Total 6.1 g/dL (6.4-8.2)
[2024-10-25] MEDS: POTASSIUM CL SA 10 MEQ TAB PO ONE (07:00)
[2024-10-25] MEDS: ENOXAPARIN 40 MG/0.4 ML SQ SCH (09:00)
[2024-10-25] MEDS ORDERED: ENOXAPARIN 40 MG/0.4 ML SQ ONE (09:07)
[2024-10-25] MEDS ORDERED: POTASSIUM CL SA 10 MEQ TAB PO ONE (09:07)
--- NOTE | 2024-10-25 12:27 | EKG ---
Test Date: 2024-10-24 Test Time: 20:25:28 Dimmer Board Operator: FRANCES MEASUREMENT RESULTS: Intervals: Rate: 67 MT: 178 QRSD: 134 QT: 432 QTc: 456 [place]: P: 65 MT: 178 QRS: -57 T: 38 INTERPRETIVE STATEMENTS: Normal sinus rhythm Right bundle branch block Left anterior fascicular block Bifascicular block Abnormal ECG Compared to ECG 06/01/2024 19:24:01 No significant changes Electronically Signed On 10-25-24 12:25:12 CDT by Juan Pablo Smith
[2024-10-25] MEDS: LOSARTAN POTASSIUM 50 MG TABLET PO SCH (21:12)
[2024-10-25] MEDS: SERTRALINE HCL 50 MG TAB PO SCH (21:13)
[2024-10-26] MEDS: LEVOTHYROXINE SOD 0.125 MG TAB PO SCH (06:22)
[2024-10-26 07:13] LABS: HDL Cholesterol 34 mg/dL (40-60); LDL Cholesterol, Calculated 137 mg/dL (<130); LDL Cholesterol,Calc NonReport 137
[2024-10-26] MEDS: PREGABALIN 75 MG CAP PO SCH (07:39)
[2024-10-26] MEDS: HYDRALAZINE HCL 20 MG/ML VIAL IV PRN (07:40)
[2024-10-26] MEDS: PANTOPRAZOLE 40MG TABLET PO SCH (07:40)
[2024-10-26] MEDS ORDERED: HOME MED 1 EA UNK (Omeprazole [Omeprazole] 20 MG Capsule.Dr) PO SCH (09:00)
[2024-10-26] MEDS: ACETAMINOPHEN 325 MG TABLET PO PRN (20:42)
[2024-10-26] MEDS: MELATONIN 5 MG TABLET PO ONE ×2 (21:00→21:23)
[2024-10-26] MEDS: MELATONIN 5 MG TABLET PO PRN (21:31)
[2024-10-27 05:49] LABS: Anion Gap 8.8 mEq/L (5.0-15.0); Potassium 3.8 mEq/L (3.5-5.1)
[2024-10-27] MEDS: POTASSIUM CL SA 10 MEQ TAB PO ONE (08:51)
[2024-10-27 09:26] VITALS: O2SAT 98
[2024-10-27 09:52] VITALS: TEMP 98
[2024-10-27 13:05] VITALS: BP 156/71
== END 2024-10-27 15:00 | disposition home or self-care (01) | DRG 683 ==
LOC: ER 18:58 → ERHOLD 23:34 → 2ND 10-25 12:28
PROVIDERS: ADMIT Internal Medicine Nephrology; ATTEND Hospitalist
DX: N17.9 Acute kidney failure, unspecified (principal); F03.93 Unspecified dementia, unspecified severity, with mood disturbance; S51.812A Laceration without foreign body of left forearm, initial encounter; I10 Essential (primary) hypertension; E03.8 Other specified hypothyroidism; N28.9 Disorder of kidney and ureter, unspecified; K80.20 Calculus of gallbladder without cholecystitis without obstruction; K57.90 Diverticulosis of intestine, part unspecified, without perforation or abscess without bleeding; R29.6 Repeated falls; Z95.5 Presence of coronary angioplasty implant and graft; Z91.81 History of falling; Z79.899 Other long term (current) drug therapy; Z87.891 Personal history of nicotine dependence; W18.30XA Fall on same level, unspecified, initial encounter; Y93.9 Activity, unspecified; Y92.019 Unspecified place in single-family (private) house as the place of occurrence of the external cause; Y99.9 Unspecified external cause status
CPT/HCPCS: 36415; 70450; 71045; 71250; 72125; 74176; 80048; 80053; 80061; 80076; 81001; 82533; 82607; 83540; 83735; 83880; 84439; 84443; 84481; 84484; 85025; 85610; 86140; 87040; 93005; 96360; 96361; 96372; 97116; 97161; 97530; 99285; J0360; J1650; J7030